=== PATIENT | male | born 1980 ===

== ENCOUNTER 2018-07-16 19:46 | Emergency (ER) | payer BC ==
[2018-07-16 19:47] VITALS: BMI 40.3
[2018-07-16 20:24] VITALS: RESP 18
[2018-07-16] MEDS ORDERED: Clindamycin 600mg/50ml D5W 600 MG/50 ML VIAL IVPB STA (20:43)
[2018-07-16 21:03] LABS: BASO # 0.02 K/mm3 (0.0-2.0); BASO % 0.2 % (0.0-3.0); EOS # 0.1 (0.0-0.7); EOS % 0.9 % (1.5-5.0); GRAN # 5.99 (1.4-6.5); GRAN % 64.8 % (50.0-68.0); LYMPH # 2.4 (1.2-3.4); LYMPH % 26.4 % (22.0-35.0); MEAN CELL VOLUME 85.7 fl (80.0-105.0); MEAN CORPUSCULAR HEMOGLOBIN 29.8 pg (25.0-35.0); MEAN CORPUSCULAR HGB CONC 34.8 g/dl (31.0-37.0); MEAN PLATELET VOLUME 9.5 fl (7.0-11.0); MONO # 0.7 (0.1-0.6); MONO % 7.7 % (1.0-6.0); RBC 5.03 10^6/uL (3.5-6.1); RED CELL DISTRIBUTION WIDTH 12.4 % (11.5-14.5); WHITE BLOOD COUNT 9.2 10^3/uL (4.5-11.0)
[2018-07-16 21:06] LABS: INR 1.14; PARTIAL THROMBOPLASTIN TIME 30.9 Seconds (25.1-36.5)
[2018-07-16 21:10] LABS: ALB/GLOB RATIO 1.5 (1.1-1.8); ALBUMIN 4.7 g/dL (3.0-4.8); ALT/SGPT 47 U/L (7-56); AST/SGOT 39 U/L (17-59); BLOOD UREA NITROGEN 28 mg/dL (7-21); CALCIUM 9.7 mg/dL (8.4-10.5); GFR NON-AFRICAN AMERICAN > 60
--- NOTE | 2018-07-16 22:05 | ED PDOC ---
Arrival/HPI - General Chief Complaint: ENT Problem Time Seen by Provider: 07/16/18 19:55 Historian: Patient - History of Present Illness Narrative History of Present Illness (Text): 07/16/18 22:02 38yo male with no pmhx who present with complaint of pain and swelling of his right ear lobe x 2weeks. States he was seen at for it and given Amoxicillin, which he finished without relieve. States he saw his PMD and was given Levaquin, today is day #3, without relieve. Denies fever, chills, nausea, vomiting, any other complaint. Past Medical History - Provider Review Nursing Documentation Reviewed: Yes - Infectious Disease Hx of Infectious Diseases: None - Tetanus Immunization Tetanus Immunization: Unknown - Cardiac Hx Hyperlipemia: Yes - Neurological Hx Neurological Disorder: Yes Hx Vertigo: Yes - Psychiatric Hx Psychophysiologic Disorder: No Hx Substance Use: No - Surgical History Hx Appendectomy: Yes - Anesthesia Hx Anesthesia: Yes Hx Anesthesia Reactions: No Hx Malignant Hyperthermia: No - Suicidal Assessment Feels Threatened In Home Enviroment: No Family/Social History - Physician Review Nursing Documentation Reviewed: Yes Family/Social History: Unknown Family HX Smoking Status: Former Smoker Hx Alcohol Use: No Hx Substance Use: No Hx Substance Use Treatment: No Allergies/Home Meds Allergies/Adverse Reactions: Allergies No Known Allergies Allergy (Verified 12/04/15 18:52) Review of Systems - Physician Review All systems were reviewed & negative as marked: Yes - Review of Systems Constitutional: Normal Eyes: Normal ENT: Normal, Other (Right ear lobe pain/.swelling) Respiratory: Normal Cardiovascular: Normal Gastrointestinal: Normal Genitourinary Male: Normal Musculoskeletal: Normal Skin: Normal Neurological: Normal Endocrine: Normal Hemo/Lymphatic: Normal Psychiatric: Normal Physical Exam Vital Signs Reviewed: Yes Vital Signs Temp Pulse Resp BP Pulse Ox 07/16/18 19:47 99.2 F 84 18 143/88 97 Temperature: Afebrile Blood Pressure: Normal Pulse: Regular Respiratory Rate: Normal Appearance: Positive for: Well-Appearing, Non-Toxic, Comfortable Pain Distress: None Mental Status: Positive for: Alert and Oriented X 3 - Systems Exam Head: Present: Atraumatic, Normocephalic Pupils: Present: PERRL Extroacular Muscles: Present: EOMI Conjunctiva: Present: Normal Ears: Present: Other (Swollen and erythematous right ear pinna. Tender to palpation) Mouth: Present: Moist Mucous Membranes Neck: Present: Normal Range of Motion Respiratory/Chest: Present: Clear to Auscultation, Good Air Exchange. No: Respiratory Distress, Accessory Muscle Use Cardiovascular: Present: Regular Rate and Rhythm, Normal S1, S2. No: Murmurs Abdomen: No: Tenderness, Distention, Peritoneal Signs Back: Present: Normal Inspection Upper Extremity: Present: Normal Inspection. No: Cyanosis, Edema Lower Extremity: Present: Normal Inspection. No: Edema Neurological: Present: GCS=15, CN II-XII Intact, Speech Normal Skin: Present: Warm, Dry, Normal Color. No: Rashes Psychiatric: Present: Alert, Oriented x 3, Normal Insight, Normal Concentration Medical Decision Making ED Course and Treatment: 07/17/18 00:02 38yo male in ED for right lobe pain/swelling [id number] Pt was already on Amoxicillin and currently on Levaquin without improvement Lab Clindamycin Lab was unremarkable without leukocytosis. Pt was afebrile, hemodynamically stable and have no co morbidity. Result was DW the pt and he was DC home with Clindamycin to take with the Levaquin. Referred to his PMD. - Lab Interpretations Lab Results: PT 13.0 SECONDS (9.4-12.5) H 07/16/18 20:45 INR 1.14 07/16/18 20:45 APTT 30.9 Seconds (25.1-36.5) 07/16/18 20:45 Total Bilirubin 0.6 mg/dL (0.2-1.3) 07/16/18 20:45 AST 39 U/L (17-59) 07/16/18 20:45 ALT 47 U/L (7-56) 07/16/18 20:45 Alkaline Phosphatase 71 U/L (38-126) 07/16/18 20:45 Total Protein 7.9 g/dL (5.8-8.3) 07/16/18 20:45 Albumin 4.7 g/dL (3.0-4.8) 07/16/18 20:45 Globulin 3.1 gm/dL 07/16/18 20:45 Albumin/Globulin Ratio 1.5 (1.1-1.8) 07/16/18 20:45 - Medication Orders Current Medication Orders: Discontinued Medications Clindamycin Phosphate (Cleocin) 600 mg in 50 mls @ 50 mls/hr IVPB STAT STA; Protocol Stop: 07/16/18 21:42 Last Admin: 07/16/18 21:02 Dose: 50 mls/hr eMAR Start Stop Document 07/16/18 21:02 DIXIE (Rec: 07/16/18 21:02 DIXIE [id number]) Intravenous Solution Start Date 07/16/18 Start Time 21:02 Disposition/Present on Arrival - Present on Arrival Any Indicators Present on Arrival: No History of DVT/PE: No History of Uncontrolled Diabetes: No Urinary Catheter: No History of Decub. Ulcer: No History Surgical Site Infection Following: None - Disposition Have Diagnosis and Disposition been Completed?: Yes Diagnosis: Cellulitis of ear Disposition: HOME/ ROUTINE Disposition Time: 22:05 Patient Plan: Discharge Condition: STABLE Discharge Instructions (ExitCare): Cellulitis (Skin Infection), Adult (DC), Cellulitis (ED) Additional Instructions: Follow up with your doctor Return to ED for any new or worsening symptoms Prescriptions: RX: Clindamycin [Cleocin] 300 mg PO TID #21 cap Referrals: Binh Christensen MD [Primary Care Provider] - Follow up with primary Forms: Secured Mail (Ukrainian)
[2018-07-16 22:54] VITALS: BP 141/82; PULSE 83; TEMP 99; O2SAT 98
== END 2018-07-16 22:54 | disposition home or self-care (01) ==
LOC: ED 19:46
DX: H60.11 Cellulitis of right external ear (principal); E78.5 Hyperlipidemia, unspecified; Z87.891 Personal history of nicotine dependence